=== PATIENT | male | born 1965 | race Caucasian/White ===

== ENCOUNTER → 2018-01-21 | Outpatient (CLI) | payer BC ==
--- NOTE | 2018-01-21 08:23 | CT ---
EXAMINATION TYPE: High-resolution CT chest DATE OF EXAM: 01/21/2018 COMPARISON: None HISTORY: 52-year-old male Chronic cough TECHNIQUE: Contiguous high-resolution axial scanning of the chest utilizing 1 mm slice thickness and 1 cm gap without IV contrast per HRCT protocol. Both prone and supine imaging was performed. CT DLP: 175 mGycm Automated exposure control for dose reduction was used. FINDINGS: Heart normal size without pericardial effusion. Ectasia of the ascending aorta at 3.6 cm. Conventional arch vessel branching anatomy. No thoracic lymphadenopathy seen. Mild diffuse bronchial wall thickening is noted with a vague patch of peribronchial groundglass densi ty in the right perihilar region. However, groundglass is not a dominant finding. There is mild bibas ilar bronchiectasis and reticulation and strandy areas of scarring or atelectasis at the left base. S ome minimal centrilobular nodularity is present in the lower lungs. No cystic change, honeycombing, or thickening of the bronchovascular bundles. Visualized upper abdomen shows no gross abnormal. Some hypodensity in the right hepatic dome is not c onfirmed on the prone imaging and may be partial volume averaging. Bones: Mild pectus excavatum deformity. No osseous destructive process. IMPRESSION: MILD BIBASILAR BRONCHIECTASIS, RETICULATIONS, AND MINIMAL CENTRILOBULAR NODULARITY. GROUNDGLASS AND C YSTIC CHANGE IS NOT A DOMINANT FINDING. CONSIDER INDOLENT/ATYPICAL INFECTIONS, CHRONIC ASPIRATION, AN D LESS LIKELY IMMUNOGLOBULIN DEFICIENCY IN THE DIFFERENTIAL.
== END | disposition home or self-care (01) ==
LOC: RADCTMAIN 06:54
PROVIDERS: ATTEND Internal Medicine Critical Care Medicine
DX: J47.9 Bronchiectasis, uncomplicated (principal)
CPT/HCPCS: 71250

== ENCOUNTER 2018-01-27 12:54 | Day surgery (SDC) | payer BC ==
[2018-01-20 15:04] VITALS: BMI 26.5
[~2018-01-27 12:54] MED LIST: ALBUTEROL NEB (CONC) 2.5 MG/0.5 ML INHALATION ONE; ATROPINE SULFATE 0.4 MG/ML 1 ML VIAL IM ONE; LACTATED RINGERS 1,000 ML IV ONE; LACTATED RINGERS 1,000 ML IV SCH; LIDOCAINE 1% 20 ML VIAL (10MG/ML) FOR IV START INTRADERMA PRN; LIDOCAINE 2% (PF) 20 MG/ML 2 ML AMP INHALATION ONE; LIDOCAINE VISCOUS 2% 15 ML CUP TOPICAL ONE
[2018-01-27 13:37] VITALS: TEMP 98.1
[2018-01-27] MEDS ORDERED: PROPOFOL 10 MG/ML 20 ML VIAL IV ONE (14:40)
[2018-01-27] MEDS ORDERED: MIDAZOLAM 2 MG/2 ML VIAL ONE (14:40)
[2018-01-27] MEDS ORDERED: KETAMINE 10 MG/ML 20 ML VIAL ONE (14:40)
[2018-01-27] MEDS ORDERED: LIDOCAINE 2% INJ 20 MG/ML INTRATRACH ONE (14:56)
[2018-01-27 15:46] VITALS: BP 118/84; PULSE 87; RESP 18
[2018-01-27 16:08] LABS: Appearance,BF Cloudy; Color,BF Red
[2018-01-27 16:53] LABS: Nucleated Cells, Body Fluid 400 /uL; RBC, Body Fluid 88000 /uL
[2018-01-27 16:55] LABS: Mononuclear WBC,Body Fluid 3 %; Polynuclear WBC,Body Fluid 97 %; Total Cells Counted,Body Fluid 100
--- NOTE | 2018-01-27 17:35 | OP ---
OPERATIVE REPORT PROCEDURE PERFORMED: Bronchoscopy airway examination, therapeutic lavage, BAL right middle lobe. PREOP DIAGNOSIS: Chronic cough. POSTOP DIAGNOSIS: Chronic cough. There was informed consent. There was universal timeout. ANESTHESIA: Provided unconscious sedation or general anesthesia. DESCRIPTION OF PROCEDURE: After the patient was adequately sedated and being fully monitored, the bronchoscope was inserted through the right nostril. It passed through the right nasopharynx into the oropharynx. The hypopharynx appeared normal. Anterior commissure, true cords, false cords, arytenoids, piriform sinuses, right and left vallecula and epiglottis all appeared normal. After topicalization, bronchoscope was pushed through the glottic opening into the trachea. Trachea appeared normal. There were thick secretions noted throughout the trachea. Tracheal david was sharp. It was topicalized. Right and left mainstem were topicalized. The right upper lobe and its 3 segments, right middle lobe and its 2 segments, right lower lobe and its 5 segments, left upper lobe proper and its 2 segments, lingula and its 2 segments and left lower lobe and its 4 segments all had similar findings of diffuse erythema and hyperemia of the airways. There was bronchial fertility, bronchial mucosal fertility. The bronchial mucosa bled easily. There were thick sticky yellow green thick secretions throughout the airways. They were noted in both lower lobes. There was no dominant mass or tumor. The bronchoscope was wedged into the right middle lobe. The BAL took place. The patient tolerated the procedure well. There was minimal bleeding. The bronchoscope was withdrawn and the patient will be recovered. MMODL / IJN: [id number] /
== END 2018-01-27 16:17 | disposition home or self-care (01) ==
LOC: ORWHC2ENDO 12:54
PROVIDERS: ATTEND Internal Medicine Critical Care Medicine
DX: J40 Bronchitis, not specified as acute or chronic (principal); Z79.51 Long term (current) use of inhaled steroids; Z79.899 Other long term (current) drug therapy
CPT/HCPCS: 94640; 87798 ×3; 87496; 87498; 87529; 88108; 88305; 89050; 87252; 87502; 87634; 87070; 87205; 87116; 87102; 87206; 31624; J2001 ×2; J2250; J0461; J2704

== ENCOUNTER → 2018-02-09 | Outpatient (CLI) | payer BC ==
[2018-02-09 17:32] LABS: Immunoglobulin E 11.3 IU/mL (0.00-114.00)
[2018-02-10 09:34] LABS: IgG Subclass 4 45.5 mg/dL (3.0-175.0)
[2018-02-10 11:34] LABS: Immunoglobulin M 89.3 mg/dL (40.0-280.0)
== END | disposition home or self-care (01) ==
LOC: LABWHC1 09:55
PROVIDERS: ATTEND Internal Medicine Critical Care Medicine
DX: R05 Cough (principal)
CPT/HCPCS: 36415; 82784; 82785; 82787; 86001; 86606; 86609

== ENCOUNTER → 2018-05-10 | Outpatient (CLI) | payer BC ==
[2018-05-10 14:31] LABS: Basophils % (A) 0 %; Eosinophils # (A) 0.1 k/uL (0-0.7); Eosinophils % (A) 2 %; HCT 45.2 % (39.0-53.0); HGB 14.3 gm/dL (13.0-17.5); Lymphocytes # (A) 1.6 k/uL (1.0-4.8); Lymphocytes % (A) 25 %; MCH 28.9 pg (25.0-35.0); MCHC 31.6 g/dL (31.0-37.0); MCV 91.3 fL (80.0-100.0); Mean Platelet Volume 6.6; Monocytes # (A) 0.4 k/uL (0-1.0); Monocytes % (A) 6 %; Neutrophils % (A) 65 %; Platelet Count 198 k/uL (150-450); RBC 4.95 m/uL (4.30-5.90); RDW 12.9 % (11.5-15.5); WBC 6.2 k/uL (3.8-10.6)
[2018-05-10 14:51] LABS: Potassium 4.7 mmol/L (3.5-5.1)
== END | disposition home or self-care (01) ==
LOC: LABPAT 13:26
PROVIDERS: ATTEND Thoracic Surgery (Cardiothoracic Vascular Surgery)
DX: Z01.818 Encounter for other preprocedural examination (principal)
CPT/HCPCS: 36415; 80051; 82565; 82947; 84520; 85025; 93005

== ENCOUNTER 2018-05-13 06:53 | Inpatient (IN) | payer BC ==
[2018-05-10 11:08] VITALS: BMI 25.7
[~2018-05-13 06:53] MED LIST changes: -ALBUTEROL NEB (CONC) 2.5 MG/0.5 ML INHALATION ONE; -ATROPINE SULFATE 0.4 MG/ML 1 ML VIAL IM ONE; +DEXAMETHASONE SOD PHOSPHATE 10 MG/ML 1 ML VIAL IV ONE; -LACTATED RINGERS 1,000 ML IV ONE; -LACTATED RINGERS 1,000 ML IV SCH; -LIDOCAINE 2% (PF) 20 MG/ML 2 ML AMP INHALATION ONE; -LIDOCAINE VISCOUS 2% 15 ML CUP TOPICAL ONE; +ONDANSETRON 4 MG/2 ML VIAL IVP ONE; +ceFAZolin IN SWFI 2 GM/20 ML SYRINGE IVP ONE; +fentaNYL (PF) 50 MCG/ML 2 ML AMP IV PRN
[2018-05-13] MEDS: LACTATED RINGERS 1,000 ML IV SCH ×3 (07:27→12:38)
[2018-05-13] MEDS: MIDAZOLAM (PF) 2 MG/2 ML VIAL IV PRN ×2 (07:32→08:01)
[2018-05-13] MEDS ORDERED: PROPOFOL 10 MG/ML 20 ML VIAL IV ONE (08:30)
[2018-05-13] MEDS ORDERED: NEOSTIGMINE 1 MG/ML 10 ML VIAL ONE (08:30)
[2018-05-13] MEDS ORDERED: LIDOCAINE 1% INJ 10MG/ML (20 ML MDV) ONE (08:30)
[2018-05-13] MEDS ORDERED: MIDAZOLAM 2 MG/2 ML VIAL ONE (08:30)
[2018-05-13] MEDS ORDERED: ROCURONIUM BROMIDE 10 MG/ML 10 ML VIAL IV ONE (08:30)
[2018-05-13] MEDS ORDERED: SUCCINYLCHOLINE CHLORIDE 100 MG/5 ML SYR IV ONE (08:30)
[2018-05-13] MEDS ORDERED: fentaNYL (PF) 50 MCG/ML 2 ML AMP ONE (08:30)
[2018-05-13] MEDS ORDERED: HYDROmorphone (PF) 1 MG/ML ONE (08:30)
[2018-05-13] MEDS ORDERED: GLYCOPYRROLATE 0.2 MG/ML 2 ML VIAL ONE (08:30)
[2018-05-13] MEDS ORDERED: ROPIVACAINE 5 MG/ML 30 ML VIAL MISCELLANE ONE (09:19)
--- NOTE | 2018-05-13 09:37 | P.OP ---
Date of Procedure: 05/13/18 Preoperative Diagnosis: Bilateral interstitial pulmonary infiltrates Postoperative Diagnosis: Same Procedure(s) Performed: Left thoracoscopic lung biopsy Anesthesia: ORA Surgeon: Scott Phillip Senior Industrial Engineer #1: Jean Marie Villanueva Estimated Blood Loss (ml): 10 IV fluids (ml): 400 Urine output (ml): 0 Pathology: other (Biopsies of the lingula and left lower lobe both sent for pathology and cultures) Disposition: PACU Indications for Procedure: 52-year-old man with persistent cough who underwent pulmonary evaluation. Workup to date including serology and bronchoscopy has been nondiagnostic. Computed tomography scan demonstrates bilateral pulmonary interstitial infiltrates most persistent and marketed in the lower lobes and lingula. Lung biopsy was requested by Dr. Rubi. Operative Findings: Pulmonary compliance was good. The lung appeared grossly normal. Description of Procedure: The patient was brought to the operating room, placed supine on the operating table, anesthetized and intubated with a double-lumen endotracheal tube. The tube was positioned with fiberoptic bronchoscopy. Patient was turned in the right lateral decubitus position and the left chest was sterilely prepped and draped. Single lung ventilation ensued. 3 one-inch incisions were made in the left chest and the video thoracoscope was introduced into the pleural space. The chest was explored. The lung appeared relatively normal. Generous wedge biopsies were obtained from the lingula and the inferior portion of the left lower lobe, which were the areas most involved by computed tomography scan. Staple lines appeared good. The specimens were removed and split on the back table. Small portion was sent for cultures including routine acid-fast and fungal cultures and the majority of each specimen was sent for pathology. A 28- English chest tube was placed through stab incision into the left pleural space and positioned posterior apically. It was secured with an 0 Ethibond suture. Rib blocks were performed at the level of the incisions with half percent Marcaine. Incisions were closed with layers of Vicryl suture. Dry sterile dressings were applied and patient was transferred to the recovery area in stable condition.
[2018-05-13] MEDS ORDERED: HYDROmorphone 1 MG/ML 1 ML SYRINGE IVP ONE ×2 (09:45→09:50)
[2018-05-13] MEDS ORDERED: MEPERIDINE 50 MG/ML SYRINGE IVP ONE (10:05)
--- NOTE | 2018-05-13 10:36 | XR ---
EXAMINATION TYPE: XR chest 1V portable DATE OF EXAM: 05/13/2018 COMPARISON: 01/21/2018 HISTORY: Post VATS procedure TECHNIQUE: Single frontal view of the chest is obtained. FINDINGS: There is a left-sided chest tube with no sizable pneumothorax. Subcutaneous emphysema note d. Right-sided consolidation and small effusion noted. Heart enlarged no overt failure or pneumothora x. IMPRESSION: 1. Left-sided chest tube with no sizable pneumothorax. 2. Right lower lobe infiltrate and small effusion.
[2018-05-13] MEDS ORDERED: ONDANSETRON 4 MG/2 ML VIAL IVP PRN (12:02)
[2018-05-13] MEDS ORDERED: IPRATROPIUM-ALBUTEROL 3 ML NEB IH PRN (12:02)
[2018-05-13] MEDS ORDERED: MORPHINE SULFATE 2 MG/ML SYRINGE IVP STA (12:37)
[2018-05-13] MEDS: DEXTROSE 5%-0.45% NACL 1,000 ML IV SCH (12:53)
[2018-05-13] MEDS: KETOROLAC 30 MG/ML 1 ML VIAL IVP SCH ×3 (12:56→23:25)
[2018-05-13] MEDS: IPRATROPIUM-ALBUTEROL 3 ML NEB IH SCH ×3 (13:19→22:32)
--- NOTE | 2018-05-13 15:19 | P.CNPUL ---
History of Present Illness Consult date: 05/13/18 Requesting physician: Scott Phillip Reason for consult: other Chief complaint: Interstitial lung disease, status post VATS and lung biopsy History of present illness: This is a 52-year-old white male patient that sees Dr. Rubi in the pulmonary clinic for his history of interstitial lung disease. Patient was initially seen in consultation in January 2018 evaluation of chronic cough that's been present for more than 2 years. Patient was trialed on asthma regime however did not respond, he underwent bronchoscopy and the sampling was negative fluid in the cytology. CT chest showed some changes including some reticulations fibrosis and bronchiectatic changes. Immunoglobulin levels with IgG subtypes were normal, fungal serology was negative, hypersensitivity screen which was essentially negative. Outpatient PFT showed FEV1 of 3.01 L or 78% predicted, with FVC of 4 L or 80%, and there was no significant change following bronchodilator ministration. Patient was referred to Dr. 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 Patient is seen in the postoperative period on selective care unit, and currently on 2 L per nasal cannula his pulse ox is 98%, he is afebrile. Post-op chest x-ray showed left- sided chest tube with no sizable pneumothorax, right lower lobe infiltrate and small effusion. We seen the patient for pulmonary management. Patient is having some mild to moderate incisional left chest discomfort, but no acute distress. He is working on his incentive spirometry, able to achieve 1500 mL on the today. Review of Systems All systems: negative Constitutional: Denies chills, Denies fever Eyes: denies blurred vision, denies pain Ears, nose, mouth and throat: Denies headache, Denies sore throat Cardiovascular: Denies chest pain, Denies shortness of breath Respiratory: Reports cough Gastrointestinal: Denies abdominal pain, Denies diarrhea, Denies nausea, Denies vomiting Musculoskeletal: Denies myalgias Integumentary: Denies pruritus, Denies rash Neurological: Denies numbness, Denies weakness Psychiatric: Denies anxiety, Denies depression Endocrine: Denies fatigue, Denies weight change Past Medical History Past Medical History: Hyperlipidemia Additional Past Medical History / Comment(s): hx. of TICS-mostly resolved w/ taking gabapentin, headaches, CHRONIC COUGH for months History of Any Multi-Drug Resistant Organisms: None Reported Past Surgical History: Tonsillectomy Additional Past Surgical History / Comment(s): COLONOSCOPY Past Anesthesia/Blood Transfusion Reactions: Motion Sickness Smoking Status: Never smoker - Past Family History Mother Family Medical History: No Reported History Medications and Allergies Home Medications Medication Instructions Recorded Confirmed Type Albuterol Inhaler [Ventolin Hfa 1 - 2 puff INHALATION RT-Q6H PRN 01/20/18 History Inhaler] Gabapentin [Neurontin] 200 mg PO TID 01/20/18 05/13/18 History Ezetimibe [Zetia] 10 mg PO DAILY 05/10/18 05/13/18 History Fluticasone/Vilanterol [Breo 1 dose INHALATION RT-DAILY 05/10/18 05/13/18 History Ellipta 100-25 Mcg Inhaler] Allergies Allergy/AdvReac Type Severity Reaction Status Date / Time No Known Allergies Allergy Verified 05/13/18 12:56 Physical Exam Vitals: Vital Signs Temp Pulse Pulse Resp BP Pulse Ox 05/13/18 13:19 92 05/13/18 11:45 86 16 139/81 98 05/13/18 11:12 59 L 16 159/80 100 05/13/18 10:57 59 L 16 169/71 99 05/13/18 10:42 60 16 169/71 100 05/13/18 10:27 62 16 170/86 100 05/13/18 10:12 60 16 170/86 100 05/13/18 09:57 59 L 16 189/65 100 05/13/18 09:42 97.2 F L 88 16 130/90 05/13/18 07:11 97.0 F L 77 16 132/72 99 Intake and Output 05/12/18 05/13/18 05/13/18 22:59 06:59 14:59 Intake Total 925 Output Total 10 Balance 915 Intake: IV 925 Output: Estimated Blood Loss 10 GENERAL EXAM: Alert, active, comfortable in no apparent distress. HEAD: Normocephalic/atraumatic. EYES: Normal reaction of pupils, equal size. Conjunctiva pink, sclera white. NOSE: Clear with pink turbinates. THROAT: No erythema or exudates. NECK: No masses, no JVD, no thyroid enlargement, no adenopathy. CHEST: No chest wall deformity. Symmetrical expansion. Left pleural chest tube is in place serosanguineous output to continuous wall suction LUNGS: Diminished breath sounds bilaterally, with some diffuse crackles CVS: Regular rate and rhythm, normal S1 and S2, no gallops, no murmurs, no rubs ABDOMEN: Soft, nontender. No hepatosplenomegaly, normal bowel sounds, no guarding or rigidity. EXTREMITIES: No clubbing, no edema, no cyanosis, 2+ pulses and upper and lower extremities. MUSCULOSKELETAL: Muscle strength and tone normal. SPINE: No scoliosis or deformity SKIN: No rashes CENTRAL NERVOUS SYSTEM: Alert and oriented -3. No focal deficits, tone is normal in all 4 extremities. PSYCHIATRIC: Alert and oriented -3. Appropriate affect. Intact judgment and insight. Results - Diagnostic Findings Chest x-ray: report reviewed, image reviewed Assessment and Plan Plan: Assessment: #1. 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 Chronic cough likely related to underlying interstitial lung disease. CT chest revealed on only 32,018 showed reticulations, minimal centrilobular nodularity, mild bibasilar bronchiectasis. Serology and bronchoscopy were nondiagnostic #3. Mild obstruction with underlying FEV1 of 3.01 L or 78% predicted #4. Hyperlipidemia #5. Shoulder bursitis #6. No history of smoking Plan: Incentive spirometry to the bedside, encourage deep breathing and coughing, pain control. Postop chest x-ray was reviewed by Dr. Rubi, showed no evidence of sizable pneumothorax, left-sided chest tube is in place, right lower lobe infiltrate and small effusion. Vital signs are stable. Lung wedge biopsy results pending. Daily chest x-ray. Continue with nebulized bronchodilators. I performed a history & physical examination of the patient and discussed their management with my nurse practitioner, Natalie Wagoner. I reviewed the nurse practitioner's note and agree with the documented findings and plan of care. Lung sounds are positive for diminished breath sounds at the bases. The findings and the impression was discussed with the patient. I attest to the documentation by the nurse practitioner. Time with Patient: Greater than 30
[2018-05-13] MEDS: ceFAZolin IN SWFI 2 GM/20 ML SYRINGE IVP SCH ×2 (15:39→23:29)
[2018-05-13] MEDS: GABAPENTIN 100 MG CAP PO SCH ×2 (15:47→21:42)
[2018-05-13] MEDS: HEPARIN SODIUM,PORCINE 5,000 UNIT/ML 1 ML VIAL SQ SCH ×2 (15:47→23:26)
[2018-05-13] MEDS: traMADol 50 MG TAB PO SCH ×3 (15:47→21:41)
[2018-05-13] MEDS: FORMOTEROL FUMARATE 20 MCG/2 ML NEBU INHALATION SCH (22:31)
[2018-05-14] MEDS: KETOROLAC 30 MG/ML 1 ML VIAL IVP SCH ×2 (05:46→13:00)
[2018-05-14 06:36] LABS: Basophils % (A) 0 %; Eosinophils # (A) 0.1 k/uL (0-0.7); Eosinophils % (A) 1 %; HCT 40.1 % (39.0-53.0); Lymphocytes # (A) 1.7 k/uL (1.0-4.8); Lymphocytes % (A) 26 %; MCH 29.1 pg (25.0-35.0); MCHC 32.4 g/dL (31.0-37.0); MCV 89.9 fL (80.0-100.0); Mean Platelet Volume 6.6; Monocytes # (A) 0.5 k/uL (0-1.0); Monocytes % (A) 7 %; Neutrophils # (A) 4.4 k/uL (1.3-7.7); Neutrophils % (A) 64 %; Platelet Count 173 k/uL (150-450); RBC 4.46 m/uL (4.30-5.90); RDW 12.7 % (11.5-15.5); WBC 6.8 k/uL (3.8-10.6)
[2018-05-14 06:55] LABS: Potassium 3.9 mmol/L (3.5-5.1)
[2018-05-14] MEDS ORDERED: PANTOPRAZOLE 40 MG TABLET PO SCH (07:30)
[2018-05-14 07:56] VITALS: RESP 16
[2018-05-14] MEDS ORDERED: EZETIMIBE 10 MG TAB PO SCH (09:00)
[2018-05-14] MEDS: IPRATROPIUM-ALBUTEROL 3 ML NEB IH SCH ×2 (09:01→12:08)
[2018-05-14] MEDS: FORMOTEROL FUMARATE 20 MCG/2 ML NEBU INHALATION SCH (09:07)
--- NOTE | 2018-05-14 09:20 | XR ---
EXAMINATION TYPE: XR chest 1V DATE OF EXAM: 05/14/2018 COMPARISON: 05/13/2018 HISTORY: Post VATS TECHNIQUE: Single frontal view of the chest is obtained. FINDINGS: There is a left-sided chest tube with no sizable pneumothorax. Subcutaneous emphysema note d. Right-sided consolidation and small effusion noted. Heart enlarged no overt failure or pneumothora x. IMPRESSION: 1. Left-sided chest tube with no sizable pneumothorax. 2. Right lower lobe infiltrate and small effusion.
[2018-05-14] MEDS: GABAPENTIN 100 MG CAP PO SCH (09:24)
[2018-05-14] MEDS: HEPARIN SODIUM,PORCINE 5,000 UNIT/ML 1 ML VIAL SQ SCH (09:24)
[2018-05-14] MEDS: traMADol 50 MG TAB PO SCH (09:25)
[2018-05-14] MEDS ORDERED: ACETAMINOPHEN TAB 325 MG TAB PO PRN ×2 (10:37)
[2018-05-14] MEDS ORDERED: traMADol 50 MG TAB PO PRN (10:38)
[2018-05-14] MEDS: DEXTROSE 5%-0.45% NACL 1,000 ML IV SCH (11:53)
--- NOTE | 2018-05-14 12:19 | P.PN ---
Subjective Progress Note Date: 05/14/18 Principal diagnosis: Bilateral interstitial pulmonary infiltrates. Previous medical history of arthritis and gout. Never smoker. POD #1 left thoracoscopic lung biopsy. Patient's currently sitting up in bed in no acute distress. Does complain of pain at the chest tube site, denies shortness of breath. No new complaints. He has been ambulating around the room without difficulty. Chest tube was placed to waterseal last night. Objective - Vital Signs Vital signs: Vital Signs Temp 98.9 F 05/14/18 07:53 Pulse 97 05/14/18 09:22 Resp 16 05/14/18 07:53 BP 114/63 05/14/18 07:53 Pulse Ox 95 05/14/18 07:53 Intake & Output 05/13/18 05/14/18 05/14/18 18:59 06:59 18:59 Intake Total 5825 Output Total 379 35 Balance 5446 -35 Weight 83.915 kg 89.1 kg Intake: IV 925 Intake, IV Titration 1300 Amount Dextrose 5%-0.45% NaCl 1, 300 000 ml @ 40 mls/hr IV . Q24H CARMELITA Rx#:[id number] Lactated Ringers 1,000 ml 1000 @ 20 mls/hr IV .Q24H CARMELITA Rx#:[id number] Oral 3600 Output: Chest Tube Drainage 69 35 Chest Tube Left Lateral 69 35 Chest Urine 300 Estimated Blood Loss 10 Other: Voiding Method Urinal # Voids 1 2 1 - Constitutional General appearance: Present: cooperative, no acute distress - Respiratory Details: Lungs sounds diminished bilaterally, left greater than right. Respirations even , nonlabored. Currently on room air with oxygen saturation 95%. Able to achieve 20-50 mL on his incentive spirometry. Left pleural chest tube to waterseal, 25 mL serosanguineous drainage overnight, 100 mL since surgery. No air leak present. - Cardiovascular Details: S1, S2 present. Regular rate and rhythm, sinus rhythm on telemetry. Palpable peripheral pulses bilaterally. No edema present. No calf pain or tenderness noted. - Gastrointestinal Gastrointestinal Comment(s): Abdomen soft, nontender, nondistended. Active bowel sounds 4 quadrants. Tolerating diet. - Genitourinary Genitourinary Comment(s): Continues to void clear, yellow urine. - Integumentary Integumentary Comment(s): Skin is warm and dry with evidence of good perfusion. Left lateral chest incisions well approximated and covered with dry intact dressing. - Neurologic Neurologic: Present: CNII-XII intact - Musculoskeletal Musculoskeletal: Present: gait normal, strength equal bilaterally - Psychiatric Psychiatric: Present: A&O x's 3, appropriate affect, intact judgment & insight - Allied health notes Allied health notes reviewed: nursing - Labs CBC & Chem 7: 05/14/18 05:44 05/14/18 05:44 Labs: Abnormal Lab Results - Last 24 Hours (Table) 05/14/18 Range/Units 05:44 Sodium 136 L (137-145) mmol/L Carbon Dioxide 31 H (22-30) mmol/L Microbiology - Last 24 Hours (Table) 05/13/18 09:20 Gram Stain - Preliminary Lung - Left Lower Lobe Tissue Culture - Preliminary 05/13/18 09:13 Gram Stain - Preliminary Lung - Left Tissue Culture - Preliminary 05/13/18 09:20 Acid Fast Bacilli Smear - Final Lung - Left Lower Lobe Acid Fast Bacilli Culture - Preliminary 05/13/18 09:13 Acid Fast Bacilli Smear - Final Lung - Left Acid Fast Bacilli Culture - Preliminary 05/13/18 09:13 Anaerobic Culture - Preliminary Lung - Left 05/13/18 09:20 Fungal Culture - Preliminary Lung - Left Lower Lobe 05/13/18 09:20 Anaerobic Culture - Preliminary Lung - Left Lower Lobe 05/13/18 09:13 Fungal Culture - Preliminary Lung - Left - Imaging and Cardiology Chest x-ray: report reviewed, image reviewed Assessment and Plan (1) Pulmonary infiltrates Current Visit: Yes Status: Chronic Code(s): R91.8 - OTHER NONSPECIFIC ABNORMAL FINDING OF LUNG FIELD SNOMED Code(s): 579414539 Plan: 1. Left pleural chest tube discontinued without incident. Chest x-ray 2 hours after. 2. As long as repeat chest x-ray is stable will discharge patient to home. 3. Follow-up appointments made with Dr. Phillip and Dr. Rubi. 4. Pain controlled current pain medication. Likely will discharge to home on Tylenol alternating with Motrin. 5. Encourage incentive spirometry 10 times every hour while awake. 6. More recommendations to follow. Time with Patient: Greater than 30
--- NOTE | 2018-05-14 12:39 | XR ---
EXAMINATION TYPE: XR chest 2V DATE OF EXAM: 05/14/2018 COMPARISON: 05/14/2018 TECHNIQUE: PA and lateral views submitted. HISTORY: Chest tube removal FINDINGS: Subsegmental consolidation at both lung bases. No sizable pneumothorax. Heart size stable. No overt f ailure. IMPRESSION: 1. Stable bilateral lower lobe atelectasis or infiltrate. 2. Chest tube removal with no sizable pneumothorax.
[2018-05-14 14:09] VITALS: BP 129/73; PULSE 98; TEMP 98.4
--- NOTE | 2018-05-14 15:09 | P.PN ---
Subjective Progress Note Date: 05/14/18 Principal diagnosis: Bilateral essential pulmonary infiltrates. Status post VATS procedure with biopsies [place] and left lower lobe. Postoperative day #1. This is a very pleasant 52-year-old gentleman who follows with Dr. Rubi in our office. He has a history of interstitial lung disease. He was admitted yesterday for an elective VATS procedure for diagnosis. This is postoperative day #1. He is up ambulating in the room. His chest tube has been removed. He is awake and alert in no acute distress. He is maintaining O2 saturations in the 90s on room air. He's been afebrile. Hemodynamically stable. Post chest tube removal reveals no sizable pneumothorax. Pathology is pending. Cultures are pending. Objective - Vital Signs Vital signs: Vital Signs Temp 98.4 F 05/14/18 12:00 Pulse 97 05/14/18 12:17 Resp 16 05/14/18 12:00 BP 129/73 05/14/18 12:00 Pulse Ox 93 L 05/14/18 12:00 Intake & Output 05/13/18 05/14/18 05/14/18 18:59 06:59 18:59 Intake Total 5825 240 Output Total 379 35 Balance 5446 -35 240 Weight 83.915 kg 89.1 kg Intake: IV 925 Intake, IV Titration 1300 Amount Dextrose 5%-0.45% NaCl 1, 300 000 ml @ 40 mls/hr IV . Q24H [facility]EL[facility] Rx#:[id number] Lactated Ringers 1,000 ml 1000 @ 20 mls/hr IV .Q24H CARMELITA Rx#:[id number] Oral 3600 240 Output: Chest Tube Drainage 69 35 Chest Tube Left Lateral 69 35 Chest Urine 300 Estimated Blood Loss 10 Other: Voiding Method Urinal # Voids 1 2 1 - Constitutional General appearance: Present: average body habitus, no acute distress - EENT Eyes: Present: EOMI, PERRLA ENT: Present: hearing grossly normal Ears: bilateral: normal - Neck Neck: Present: normal ROM Carotids: bilateral: upstroke normal Thyroid: bilateral: normal size - Respiratory Respiratory: left: diminished - Cardiovascular Rhythm: regular Heart sounds: normal: S1, S2 - Gastrointestinal General gastrointestinal: Present: normal bowel sounds - Integumentary Integumentary: Present: normal turgor - Neurologic Neurologic: Present: CNII-XII intact - Musculoskeletal Musculoskeletal: Present: gait normal - Psychiatric Psychiatric: Present: A&O x's 3, appropriate affect, intact judgment & insight - Labs CBC & Chem 7: 05/14/18 05:44 05/14/18 05:44 Labs: Abnormal Lab Results - Last 24 Hours (Table) 05/14/18 Range/Units 05:44 Sodium 136 L (137-145) mmol/L Carbon Dioxide 31 H (22-30) mmol/L Microbiology - Last 24 Hours (Table) 05/13/18 09:20 Anaerobic Culture - Preliminary Lung - Left Lower Lobe 05/13/18 09:13 Anaerobic Culture - Preliminary Lung - Left 05/13/18 09:20 Gram Stain - Preliminary Lung - Left Lower Lobe Tissue Culture - Preliminary 05/13/18 09:13 Gram Stain - Preliminary Lung - Left Tissue Culture - Preliminary 05/13/18 09:20 Acid Fast Bacilli Smear - Final Lung - Left Lower Lobe Acid Fast Bacilli Culture - Preliminary 05/13/18 09:13 Acid Fast Bacilli Smear - Final Lung - Left Acid Fast Bacilli Culture - Preliminary 05/13/18 09:20 Fungal Culture - Preliminary Lung - Left Lower Lobe 05/13/18 09:13 Fungal Culture - Preliminary Lung - Left Assessment and Plan Assessment: Assessment: #1. 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 Chronic cough likely related to underlying interstitial lung disease. CT chest revealed on only 32,018 showed reticulations, minimal centrilobular nodularity, mild bibasilar bronchiectasis. Serology and bronchoscopy were nondiagnostic #3. Mild obstruction with underlying FEV1 of 3.01 L or 78% predicted #4. Hyperlipidemia #5. Shoulder bursitis #6. No history of smoking Plan: The patient was seen and evaluated by Dr. Rubi. Chest x-ray and labs were reviewed. He is cleared for discharge from the pulmonary standpoint. He'll follow-up in our office in 1-2 weeks' time. We'll repeat a chest x-ray then. We'll await pathology and culture results. I, the cosigning physician, performed a history & physical examination of the patient. Lungs sounds are diminished in the left. Otherwise clear Maintaining good O2 saturations in the 90s on room air. I discussed the assessment and plan of care with my nurse practitioner, Kassidy Holguin. I attest to the above note as dictated by her.
--- NOTE | 2018-05-14 15:29 | P.DS ---
Providers Date of admission: 05/13/18 06:53 Expected date of discharge: 05/14/18 Attending physician: Scott Phillip Consults: 05/13/18 12:02 Consult Physician Routine Consulting Provider: Farhat Rubi Consult Reason/Comments: pulm managment post vats Do you want consulting provider notified?: Yes Primary care physician: Naida Chowdhury - Discharge Diagnosis(es) (1) Pulmonary infiltrates Status: Chronic Hospital Course: FINAL DIAGNOSIS: 1. Bilateral interstitial pulmonary infiltrates 2. Arthritis 3. Gout PRINCIPAL PROCEDURE: 1. Left thoracoscopic lung biopsy HISTORY OF PRESENT ILLNESS: This is a 52-year-old gentleman who follows with Dr Chowdhury an outpatient basis. He was found with Dr. Rubi for a two-year history of coughing, with occasional productive yellow sputum. He has had no history of smoking. He had undergone extensive workup including evaluation with the log chipper and Dr. Rubi. He had undergone bronchoscopy as well as serology and all of his workup to date has been negative. Computed tomography scan demonstrated bilateral interstitial changes, most prominent in the lower lobes. The patient was referred to Dr. Phillip from cardiothoracic surgery. He was recommended to undergo thoracoscopic lung biopsy. The usual perioperative course was discussed in detail with the patient and his family, all risks and benefits were explained, all questions were answered, and consent was obtained to proceed with surgery. HOSPITAL COURSE: The patient was brought to the hospital on 05/13/2018, taken to the preoperative area, prepared in the usual fashion, and subsequently taken to the operating room where Dr. Phillip performed left thoracoscopic lung biopsy. Upon completion of surgery the patient was extubated, taken to the recovery room where he was monitored hemodynamically, and eventually admitted to [address] [place] [address] cardiac stepdown unit. His chest tube was placed to waterseal the night of surgery, and discontinued on postoperative day #1. His oxygen was titrated down, he was tolerating oral diet, his pain was controlled, and he was ready to be discharged to home on postoperative day #1. He received written and verbal instruction regarding his medications, activity restrictions, signs and symptoms requiring physician notification, and follow-up appointments. COMPLICATIONS: The patient experienced no postoperative complications. Patient Condition at Discharge: Stable Plan - Discharge Summary Discharge Rx Participant: No New Discharge Prescriptions: New traMADol HCl [Ultram] 50 mg PO QID PRN #30 tab PRN Reason: Moderate Pain Continue Albuterol Inhaler [Ventolin Hfa Inhaler] 1 - 2 puff INHALATION RT-Q6H PRN PRN Reason: Shortness Of Breath Gabapentin [Neurontin] 200 mg PO TID Ezetimibe [Zetia] 10 mg PO DAILY Fluticasone/Vilanterol [Breo Ellipta 100-25 Mcg Inhaler] 1 dose INHALATION RT -DAILY Discharge Medication List Albuterol Inhaler [Ventolin Hfa Inhaler] 1 - 2 puff INHALATION RT-Q6H PRN [History] Gabapentin [Neurontin] 200 mg PO TID 01/20/18 [History] Ezetimibe [Zetia] 10 mg PO DAILY 05/10/18 [History] Fluticasone/Vilanterol [Breo Ellipta 100-25 Mcg Inhaler] 1 dose INHALATION RT- DAILY 05/10/18 [History] traMADol HCl [Ultram] 50 mg PO QID PRN #30 tab 05/14/18 [Rx] Follow up Appointment(s)/Referral(s): Naida Chowdhury MD [Primary Care Provider] - As Needed Scott Phillip MD [STAFF PHYSICIAN] - 05/27/18 2:00 pm Farhat Rubi DO [Doctor of Osteopathic Medicine] - 05/27/18 9:30 am Patient Instructions/Handouts: Video Assisted Thoracoscopic Surgery (DC) Activity/Diet/Wound Care/Special Instructions: DISCHARGE INSTRUCTIONS: 1. No driving for 1-2 weeks, or until physician gives their ok. 2. No lifting, pushing, or pulling more than 10 pounds for 2 weeks. The physician will advise of any restriction changes. 3. Continue pain control per as needed orders. May alternate [id number] Tylenol and Motrin. 4. Continue with incentive spirometry and splinting until otherwise directed by the physician. 5. May shower daily starting 05/16/2018. 6. Routine incision care. No powders, lotions, ointments on incisions. 7. Please call surgeon/CRAFT DEMONSTRATOR for temp greater than 101 F or purulent drainage from incisions. Devora or Don Discharge Disposition: HOME SELF-CARE
== END 2018-05-14 14:45 | disposition home or self-care (01) | DRG 168 ==
LOC: 2ORWHC 06:53 → EDSTATUS 07:30 → 3SCARD 12:25
PROVIDERS: ADMIT Thoracic Surgery (Cardiothoracic Vascular Surgery); ATTEND Thoracic Surgery (Cardiothoracic Vascular Surgery)
PROC: 0BBH4ZX Excision of Lung Lingula, Percutaneous Endoscopic Approach, Diagnostic (ICD-10-PCS; 2018-05-13)
PROC: 0BBJ4ZX Excision of Left Lower Lung Lobe, Percutaneous Endoscopic Approach, Diagnostic (ICD-10-PCS; principal; 2018-05-13 08:30)
DX: J84.9 Interstitial pulmonary disease, unspecified (principal); M19.90 Unspecified osteoarthritis, unspecified site; M10.9 Gout, unspecified; M75.50 Bursitis of unspecified shoulder; E78.5 Hyperlipidemia, unspecified; Z79.51 Long term (current) use of inhaled steroids; Z79.899 Other long term (current) drug therapy
CPT/HCPCS: 71045; 71046; 80048; 85025; 86850; 86900; 86901; 87070; 87075; 87102; 87116; 87205; 87206; 88307; 88309; 94640; 94760

== ENCOUNTER 2019-11-16 22:10 | Emergency (ER) | payer BC ==
[2019-11-16 22:23] VITALS: BP 125/76; PULSE 62; RESP 18; TEMP 98.5
[2019-11-16] MEDS ORDERED: ORPHENADRINE 30 MG/ML 2 ML VIAL IM STA (23:04)
[2019-11-16] MEDS ORDERED: KETOROLAC 30 MG/ML 1 ML VIAL IM STA (23:04)
--- NOTE | 2019-11-17 | XR ---
EXAMINATION TYPE: XR lumbosacral spine min 4V DATE OF EXAM: 11/16/2019 COMPARISON: NONE HISTORY: Back pain TECHNIQUE: 5 views FINDINGS: Lumbar vertebra have normal spacing and alignment. Posterior elements are intact. Sacroilia c joints are normal. IMPRESSION: Negative lumbar spine exam. No fracture seen.
--- NOTE | 2019-11-17 00:35 | ED ---
General Adult HPI - General Chief complaint: Back Pain/Injury Stated complaint: Back Pain Time Seen by Provider: 11/16/19 22:49 Source: patient, RN notes reviewed Mode of arrival: ambulatory Limitations: no limitations - History of Present Illness Initial comments: 53-year-old male presents to the emergency department with a chief complaint of back pain. 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 Patient states that he saw a chiropractor which completely alleviated the pain yesterday. However when he went walked up a step today he felt a tweak in his back again. Pain does not radiate down the legs. Patient states pain worsens with sitting and feels better with laying down. Patient denies fevers or chills. Denies bladder or bowel changes. Denies saddle anesthesia or numbness or tingling in the legs. Denies any weakness of the lower extremities.Patient has no other complaints at this time including shortness of breath, chest pain, abdominal pain, nausea or vomiting, headache, or visual changes. - Related Data Home Medications Medication Instructions Recorded Confirmed Albuterol Inhaler (Mhu) [Ventolin 1 - 2 puff INHALATION RT-Q6H PRN 01/20/18 05/13/18 Hfa Inhaler (Mhu)] Gabapentin [Neurontin] 200 mg PO TID 01/20/18 05/13/18 Ezetimibe [Zetia] 10 mg PO DAILY 05/10/18 05/13/18 Fluticasone/Vilanterol [Breo 1 dose INHALATION RT-DAILY 05/10/18 05/13/18 Ellipta 100-25 Mcg Inhaler] Previous Rx's Medication Instructions Recorded traMADol HCl [Ultram] 50 mg PO QID PRN #30 tab 05/14/18 Ibuprofen [Motrin] 600 mg PO Q6HR PRN #20 tab 11/17/19 Allergies Allergy/AdvReac Type Severity Reaction Status Date / Time No Known Allergies Allergy Verified 11/16/19 22:23 Review of Systems ROS Statement: Those systems with pertinent positive or pertinent negative responses have been documented in the HPI. ROS Other: All systems not noted in ROS Statement are negative. Past Medical History Past Medical History: Hyperlipidemia Additional Past Medical History / Comment(s): hx. of TICS-mostly resolved w/taking gabapentin, headaches, CHRONIC COUGH for months History of Any Multi-Drug Resistant Organisms: None Reported Past Surgical History: Tonsillectomy Additional Past Surgical History / Comment(s): COLONOSCOPY Past Anesthesia/Blood Transfusion Reactions: Motion Sickness Past Psychological History: No Psychological Hx Reported Smoking Status: Never smoker Past Alcohol Use History: Occasional Past Drug Use History: None Reported - Past Family History Mother Family Medical History: No Reported History General Exam Limitations: no limitations General appearance: alert, in no apparent distress Head exam: Present: atraumatic, normocephalic, normal inspection Eye exam: Present: normal appearance, PERRL, EOMI. Absent: scleral icterus, conjunctival injection, periorbital swelling ENT exam: Present: normal exam, mucous membranes moist Neck exam: Present: normal inspection, full ROM. Absent: tenderness, meningismus, lymphadenopathy Respiratory exam: Present: normal lung sounds bilaterally. Absent: respiratory distress, wheezes, rales, rhonchi, stridor Cardiovascular Exam: Present: regular rate, normal rhythm, normal heart sounds. Absent: systolic murmur, diastolic murmur, rubs, gallop, clicks GI/Abdominal exam: Present: soft, normal bowel sounds. Absent: distended, tenderness, guarding, rebound, rigid Extremities exam: Present: normal capillary refill (Capillary fill less than 2 seconds in the lower extremities, PT pulses 2+ and equal.), other (Strength 5 out of 5 in lower extremities bilaterally.) Back exam: Absent: CVA tenderness (R), CVA tenderness (L), vertebral tenderness Neurological exam: Present: alert Course Vital Signs 11/16/19 22:19 Temperature 98.5 F Pulse Rate 62 Respiratory 18 Rate Blood Pressure 125/76 O2 Sat by Pulse 98 Oximetry Medical Decision Making - Medical Decision Making Vitals are stable. No red flag symptoms. X-ray was obtained which was negative. Patient was given Toradol and Norflex and did have improvement in pain. Patient states he is not having pain now with lying down. Patient will be given pain medication for home and follow-up to orthopedics. He was instruct ed to return here for any red flag symptoms which were discussed in depth with him and his . Disposition Clinical Impression: Mechanical back pain Disposition: HOME SELF-CARE Condition: Good Instructions (If sedation given, give patient instructions): Acute Low Back Pain (ED) Additional Instructions: Please take Motrin and Tylenol for pain. Motrin prescription is at your pharmacy. If pain is severe take Tylenol 3. Do gentle stretching. Follow up with orthopedics. Return here for any worsening symptoms such as weakness of the lower extremities, bladder or bowel changes, numbness or tingling of the groin or buttock, or worsening pain or fevers. Prescriptions: Ibuprofen [Motrin] 600 mg PO Q6HR PRN #20 tab PRN Reason: Pain Is patient prescribed a controlled substance at d/c from ED?: No Referrals: Naida Chowdhury MD [Primary Care Provider] - 1-2 days Giuliana Hurd DO [Doctor of Osteopathic Medicine] - 1-2 days Time of Disposition: 00:33
== END 2019-11-17 00:52 | disposition home or self-care (01) ==
LOC: EC 22:10
DX: M54.9 Dorsalgia, unspecified (principal); E78.5 Hyperlipidemia, unspecified; Z79.51 Long term (current) use of inhaled steroids; Z79.899 Other long term (current) drug therapy
CPT/HCPCS: 72110; 99283; 96372 ×2; J2360; J1885